=== PATIENT | female | born 1975 | race Caucasian/White ===

== ENCOUNTER → 2016-11-24 | Outpatient (CLI) | payer OTHER ==
[~2016-11-24] MED LIST: No meds per pt.
== END | disposition home or self-care (01) ==
LOC: STAR 14:44
PROVIDERS: ATTEND Specialist
DX: Z02.9 Encounter for administrative examinations, unspecified (principal)

== ENCOUNTER 2016-12-08 09:34 | Inpatient (IN) | payer OTHER ==
[~2016-12-08] VITALS: Ht 160 cm; Wt 62.5 kg
[~2016-12-08 09:34] MED LIST changes: +BUPIVACAINE/PF-EPI 0.25% 1:200K ONE
[2016-12-08] MEDS ORDERED: LIDOCAINE 1%, 2ML ONE (09:55)
[2016-12-08] MEDS ORDERED: LACTATED RINGERS 1,000 ML IV SCH (09:56)
[2016-12-08 09:57] VITALS: BP 117/76
[2016-12-08] MEDS ORDERED: LIDOCAINE 1%, 2ML SQ PRN (10:00)
[2016-12-08 10:37] LABS: HCG UR OBC PASS
[2016-12-08] MEDS ORDERED: FENTANYL PF 250 MCG/5ML ONE ×2 (11:53→13:25)
[2016-12-08] MEDS ORDERED: MIDAZOLAM 1 MG/ML, 2ML ONE (11:53)
[2016-12-08] MEDS ORDERED: LABETALOL 5MG/ML, 20ML IV PRN (12:00)
[2016-12-08] MEDS ORDERED: OXYcodone 5 MG/5 ML ORAL.SOL UDC PO PRN ×2 (12:00→17:00)
[2016-12-08] MEDS ORDERED: HYDROmorphone 1 MG/ML, 1ML IV PRN (12:00)
[2016-12-08] MEDS ORDERED: ONDANSETRON 2MG/ML, 2ML IVPush PRN (12:00)
[2016-12-08] MEDS ORDERED: FENTANYL PF 100 MCG/2ML IV PRN (12:00)
[2016-12-08] MEDS ORDERED: hydrALAzine 20 MG/ML, 1ML IV PRN (12:00)
[2016-12-08] MEDS ORDERED: METOCLOPRAMIDE 5 MG/ML, 2ML IV PRN (12:00)
[2016-12-08] MEDS ORDERED: PROMETHAZINE 25 MG/ML, 1ML IV PRN (12:00)
[2016-12-08] MEDS ORDERED: MEPERIDINE/PF 25MG/0.5ML IVPush PRN (12:00)
[2016-12-08] MEDS ORDERED: ACETAMINOPHEN 325 MG TABLET PO PRN (12:00)
[2016-12-08] MEDS ORDERED: MIDAZOLAM 1 MG/ML, 2ML IV PRN (12:00)
[2016-12-08] MEDS ORDERED: DEXAMETHASONE 4 MG/ML, 5ML ONE (12:08)
[2016-12-08] MEDS ORDERED: PHENYLEPHRINE 10 MG/ML ONE (12:08)
[2016-12-08] MEDS ORDERED: SUCCINYLCHOLINE 20 MG/ML, 10ML ONE (12:08)
[2016-12-08] MEDS ORDERED: ONDANSETRON 2MG/ML, 2ML ONE (12:08)
[2016-12-08] MEDS ORDERED: PROPOFOL 10 MG/ML, 20ML ONE (12:08)
[2016-12-08] MEDS ORDERED: KETOROLAC 30 MG/1 ML ONE (12:08)
[2016-12-08] MEDS ORDERED: ROCURONIUM 10 MG/ML ONE (12:08)
[2016-12-08] MEDS ORDERED: CEFAZOLIN 1,000 MG ONE (12:08)
[2016-12-08] MEDS ORDERED: HYDROmorphone 2 MG/ML, 1ML ONE (13:24)
[2016-12-08] MEDS ORDERED: OXYcodone 5 MG/5 ML ORAL.SOL UDC ONE (14:50)
[2016-12-08 15:50] VITALS: BP 101/68
[2016-12-08] MEDS: HYDROmorphone 2 MG/ML, 1ML IV PRN ×2 (16:47→20:39)
[2016-12-08 18:53] VITALS: BP 102/60
[2016-12-08] MEDS: KETOROLAC 30 MG/1 ML IV SCH (19:56)
[2016-12-08] MEDS ORDERED: CEFAZOLIN PMX 1GM/50ML 50 ML IVPB SCH (20:00)
[2016-12-08] MEDS: POTASSIUM CHLORIDE 20 MEQ in D5%-LACTATED RINGERS 1,000 ML IV SCH (20:39)
[2016-12-08] MEDS ORDERED: ZOLPIDEM 5MG TABLET PO PRN (21:00)
[2016-12-08 23:18] VITALS: BP 93/54
[2016-12-09] MEDS: POTASSIUM CHLORIDE 20 MEQ in D5%-LACTATED RINGERS 1,000 ML IV SCH ×2 (01:25→05:14)
[2016-12-09] MEDS: KETOROLAC 30 MG/1 ML IV SCH ×3 (01:57→13:47)
[2016-12-09 03:16] VITALS: BP 94/50
[2016-12-09] MEDS ORDERED: ONDANSETRON 2MG/ML, 2ML ONE (05:11)
[2016-12-09] MEDS ORDERED: ONDANSETRON 2MG/ML, 2ML IVPush PRN (05:30)
[2016-12-09 07:35] VITALS: BP 112/72
[2016-12-09] MEDS ORDERED: HYDR-3240 PO (13:38)
[2016-12-09] MEDS ORDERED: IBUP200T48 PO (13:40)
[2016-12-09] MEDS ORDERED: IBUPROFEN 600 MG TABLET PO SCH (21:00)
== END 2016-12-09 14:40 | disposition home or self-care (01) | DRG 743 ==
LOC: OUT 09:34 → EDSTATUS 12:00 → 4NOR 15:30 → OUT 16:24 → DCLOUNGE 12-09 14:23
PROVIDERS: ADMIT Specialist; ATTEND Specialist
PROC: 0UTC0ZZ Resection of Cervix, Open Approach (ICD-10-PCS; 2016-12-08)
PROC: 0UT70ZZ Resection of Bilateral Fallopian Tubes, Open Approach (ICD-10-PCS; 2016-12-08)
PROC: 0UBG0ZX Excision of Vagina, Open Approach, Diagnostic (ICD-10-PCS; 2016-12-08)
PROC: 0UT90ZZ Resection of Uterus, Open Approach (ICD-10-PCS; principal; 2016-12-08 12:00)
DX: D25.9 Leiomyoma of uterus, unspecified (principal); D26.0 Other benign neoplasm of cervix uteri; N93.9 Abnormal uterine and vaginal bleeding, unspecified; Z80.0 Family history of malignant neoplasm of digestive organs; Z82.49 Family history of ischemic heart disease and other diseases of the circulatory system
CPT/HCPCS: 36415; 81025; 85014; 85018; 88305; 88307; 88331; J0690; J1100; J1170; J1885; J2250; J2405; J2704; J3010; J3480; J3490; J0330; J2370; J7120; J7121